=== PATIENT | female | born 1985 | race Hispanic/Latino ===

== ENCOUNTER 2024-05-22 20:38 | Emergency (ER) | payer BC, SELFPAY ==
[2024-05-22 20:40] VITALS: BP 167/103
[2024-05-22 21:02] LABS: % Eosinophils 1.9 % (0-6); % Lymphocytes 34.8 % (20.5-51.1); % Neutrophils 52.3 % (42.2-75.2); Absolute Basophils 0.1 10^3/uL (0-0.2); Absolute Eosinophils 0.1 10^3/uL (0-0.7); Absolute Immature Granulocytes 0.1 10^3/uL (0-0.05); Absolute Lymphocytes 2.5 10^3/uL (1.2-3.4); Absolute Monocytes 0.7 10^3/uL (0.1-0.6); Absolute Neutrophils 3.8 10^3/uL (1.4-6.5); Hematocrit 36.2 % (37.0-47.0); Hemoglobin 12.2 g/dL (12.0-16.0); Mean Corp Hgb Conc. 33.7 g/dL (33.0-37.0); Mean Corpuscular Hgb 27.4 pg (27.0-31.0); Mean Corpuscular Volume 81.3 fL (81.0-99.0); Mean Platelet Volume 10.3 fL (7.4-10.4); Nucleated Red Blood Cells % 0 %; Platelet Count 353 10^3/uL (130-400); Red Blood Cell Count 4.45 10^6/uL (4.20-5.40); Red Cell Dist. Width 15.9 % (11.5-14.5); White Blood Cell Count 7.2 10^3/uL (4.8-10.8)
[2024-05-22 21:12] LABS: Urine Albumin Negative (Neg - Trace); Urine Bilirubin Negative (Negative); Urine Character Clear (Clear); Urine Color Yellow; Urine Glucose 3+ (Negative); Urine Ketone 3+ (Negative); Urine Leukocyte Negative (Negative); Urine Nitrite Negative (Negative); Urine Occult Blood Negative (Negative); Urine Specific Gravity 1.015 (<1.030); Urine Urobilinogen Negative (Neg - 1+)
[2024-05-22 21:14] LABS: ALT (SGPT) 14 U/L (0-35); AST (SGOT) 17 U/L (14-36); Albumin 4.6 g/dl (3.5-5.0); Alkaline Phosphatase 59 U/L (38-126); Blood Urea Nitrogen 13 mg/dl (7-17); Calcium 9.5 mg/dl (8.4-10.2); Carbon Dioxide 19 mmol/L (22-30); Chloride 103 mmol/L (98-107); Glucose 258 mg/dl (70-99); Potassium 4.4 mmol/L (3.5-5.1); Sodium 138 mmol/L (135-145); Total Bilirubin 0.4 mg/dl (0.2-1.3); Total Protein 7.6 g/dl (6.3-8.2); eGFR > 60.00
--- NOTE | 2024-05-22 23:08 | ED.GENMED ---
History of Present Illness
<ALMA Basilio - Last Filed: 05/22/24 23:09>
General
Chief Complaint: Female Nightman/Gu symptoms
Time Seen by Provider: 05/22/24 23:40
<Esdras Brennan DO - Last Filed: 05/23/24 03:01>
General
Source: patient, spouse and family
Exam Limitations: none
Nursing documentation reviewed up to this point in time: agreed with
History of Present Illness
History of Present Illness:
38-year-old female presents emergency department due to burning in her vagina. She had a UTI and was placed on Keflex, then was diagnosed with a yeast infection and placed on boric acid, then diagnosed with BV and placed on Flagyl. Today she has
increased pain and swelling. She watched a [employer] video several days ago and afterwards began having concerns about having flesh eating bacteria from [employer]. She feels like she was more concerned about after watching a [employer] video.
Past History
<ALMA Basilio - Last Filed: 05/22/24 23:09>
Past History
ED Past Medical History: IDDM
ED Past Surgical History: None
Social History
Tobacco: Non-smoker
Alcohol: None
Drug: None
<Esdras Brennan DO - Last Filed: 05/23/24 03:01>
Past History
ED Past Medical History: Hypothyroidism
ED Past Surgical History: Other (Lasik)
Review of Systems
<DO Griselda Swanson Last Filed: 05/23/24 03:01>
Review of Systems
Allergies reviewed?: Yes
All Other Systems: Not applicable
Constitutional: Reports no symptoms
EENT: Reports no symptoms
Respiratory: Reports no symptoms
Cardiac: Reports no symptoms
ABD/GI: Reports no symptoms
: Reports dysuria and other (Pelvic pain)
Musculoskeletal: Reports no symptoms
Skin: Reports no symptoms
Neurological: Reports no symptoms
Endocrine: Reports no symptoms
Hematologic/Lymphatic: Reports no symptoms
Psychiatric: Reports no symptoms
Phy Exam
<Esdras Brennan DO - Last Filed: 05/23/24 03:01>
Physical Exam
Physical Exam:
Physical Exam
General: no apparent distress, not acutely ill
Neck: supple. no meningeal signs. normal posterior pharynx
HEENT: Pupils equal round reactive to light, EOMI
Lungs: no acute respiratory distress.
Abdomen: normal bowel sounds. not tender. no CVAT
Neuro: alert and oriented. no focal neurological deficits
Skin: no rash
Psychiatric: well kept. interactive and cooperative
Extremities: no edema. good distal pulses
Genitourinary Exam Female
Exam Female: no adnexal tenderness, no bleeding, no CMT, no lesions, no mass and vaginal discharge (whitish)
Vaginal Exam: normal
Course
<ST ChetnaPA - Last Filed: 05/22/24 23:09>
Orders/Labs/Results
Orders:
Orders
05/22/24 20:55
Complete Blood Count/With Diff Urgent
Comprehensive Metabolic Panel Urgent
05/22/24 21:05
HCG, Urine Qualitative Screen Urgent
Date Specimen was Collected: 05/22/24
Time Specimen was Collected: 20:48
Comment: ADD ON
Urinalysis Reflex To Culture Urgent
Date Specimen was Collected: 05/22/24
Time Specimen was Collected: 20:48
05/23/24 00:03
US Pelvis Only (non-obstetric) Urgent
Reason For Exam: pelvic pain 3 weeks
05/23/24 02:11
CT Abd/pelvis W Iv Cont Urgent
Comment:
Reason For Exam: periumbilical pain
05/23/24 02:19
Add On- LAB Urgent
Tests Added?: urine hcg
Abnormal Lab Results
05/22/24 05/22/24
20:55 21:05
Hct 36.2 L %
(37.0-47.0)
RDW 15.9 H %
(11.5-14.5)
Abs Immat Gran (auto) 0.1 H 10^3/uL
(0-0.05)
Absolute Monos (auto) 0.7 H 10^3/uL
(0.1-0.6)
Immature Gran % 1.0 H %
(0-0.5)
Carbon Dioxide 19 L mmol/L
(22-30)
Creatinine 0.5 L mg/dL
(0.6-1.0)
Glucose 258 H mg/dl
(70-99)
Urine Ketones 3+ A
(Negative)
Urine Glucose 3+ A
(Negative)
05/22/24 20:55
05/22/24 20:55
Vital Signs
Initial and Last Documented VS:
Initial Vital Signs
Temp Pulse Resp BP Pulse Ox
98.1 F 118 16 167/103 100
05/22/24 20:40 05/22/24 20:40 05/22/24 20:40 05/22/24 20:40 05/22/24 20:40
Last Documented Vital Signs
Temp Pulse Resp BP Pulse Ox
98.2 F 93 15 128/88 97
05/22/24 23:50 05/23/24 03:00 05/23/24 03:00 05/23/24 03:00 05/23/24 03:00
<Esdras Brennan, DO - Last Filed: 05/23/24 03:01>
Orders/Labs/Results
Orders:
Orders
05/22/24 20:55
Complete Blood Count/With Diff Urgent
Comprehensive Metabolic Panel Urgent
05/22/24 21:05
HCG, Urine Qualitative Screen Urgent
Date Specimen was Collected: 05/22/24
Time Specimen was Collected: 20:48
Comment: ADD ON
Urinalysis Reflex To Culture Urgent
Date Specimen was Collected: 05/22/24
Time Specimen was Collected: 20:48
05/23/24 00:03
US Pelvis Only (non-obstetric) Urgent
Reason For Exam: pelvic pain 3 weeks
05/23/24 02:11
CT Abd/pelvis W Iv Cont Urgent
Comment:
Reason For Exam: periumbilical pain
05/23/24 02:19
Add On- LAB Urgent
Tests Added?: urine hcg
Abnormal Lab Results
05/22/24 05/22/24
20:55 21:05
Hct 36.2 L %
(37.0-47.0)
RDW 15.9 H %
(11.5-14.5)
Abs Immat Gran (auto) 0.1 H 10^3/uL
(0-0.05)
Absolute Monos (auto) 0.7 H 10^3/uL
(0.1-0.6)
Immature Gran % 1.0 H %
(0-0.5)
Carbon Dioxide 19 L mmol/L
(22-30)
Creatinine 0.5 L mg/dL
(0.6-1.0)
Glucose 258 H mg/dl
(70-99)
Urine Ketones 3+ A
(Negative)
Urine Glucose 3+ A
(Negative)
05/22/24 20:55
05/22/24 20:55
Vital Signs
Initial and Last Documented VS:
Initial Vital Signs
Temp Pulse Resp BP Pulse Ox
98.1 F 118 16 167/103 100
05/22/24 20:40 05/22/24 20:40 05/22/24 20:40 05/22/24 20:40 05/22/24 20:40
Last Documented Vital Signs
Temp Pulse Resp BP Pulse Ox
98.2 F 93 15 128/88 97
05/22/24 23:50 05/23/24 03:00 05/23/24 03:00 05/23/24 03:00 05/23/24 03:00
<Krunal Davis, DO - Last Filed: 05/23/24 03:14>
Orders/Labs/Results
Orders:
Orders
05/22/24 20:55
Complete Blood Count/With Diff Urgent
Comprehensive Metabolic Panel Urgent
05/22/24 21:05
HCG, Urine Qualitative Screen Urgent
Date Specimen was Collected: 05/22/24
Time Specimen was Collected: 20:48
Comment: ADD ON
Urinalysis Reflex To Culture Urgent
Date Specimen was Collected: 05/22/24
Time Specimen was Collected: 20:48
05/23/24 00:03
US Pelvis Only (non-obstetric) Urgent
Reason For Exam: pelvic pain 3 weeks
05/23/24 02:11
CT Abd/pelvis W Iv Cont Urgent
Comment:
Reason For Exam: periumbilical pain
05/23/24 02:19
Add On- LAB Urgent
Tests Added?: urine hcg
Abnormal Lab Results
05/22/24 05/22/24
20:55 21:05
Hct 36.2 L %
(37.0-47.0)
RDW 15.9 H %
(11.5-14.5)
Abs Immat Gran (auto) 0.1 H 10^3/uL
(0-0.05)
Absolute Monos (auto) 0.7 H 10^3/uL
(0.1-0.6)
Immature Gran % 1.0 H %
(0-0.5)
Carbon Dioxide 19 L mmol/L
(22-30)
Creatinine 0.5 L mg/dL
(0.6-1.0)
Glucose 258 H mg/dl
(70-99)
Urine Ketones 3+ A
(Negative)
Urine Glucose 3+ A
(Negative)
05/22/24 20:55
05/22/24 20:55
Vital Signs
Initial and Last Documented VS:
Initial Vital Signs
Temp Pulse Resp BP Pulse Ox
98.1 F 118 16 167/103 100
05/22/24 20:40 05/22/24 20:40 05/22/24 20:40 05/22/24 20:40 05/22/24 20:40
Last Documented Vital Signs
Temp Pulse Resp BP Pulse Ox
98.2 F 93 15 128/88 97
05/22/24 23:50 05/23/24 03:00 05/23/24 03:00 05/23/24 03:00 05/23/24 03:00
<Esdras Brennan, DO - Last Filed: 05/23/24 03:01>
MDM/Problems Addressed
Differential Diagnosis Includes:
vaginal candidiasis, diverticulitis
MDM/Problems Addressed:
38 yo female with periumbilical pain, vaginal candidiasis. She was using boric acid, but states it portillo. Will treat with clotrimazole troches and follow up with clinical quality assurance associate. CT a/p pending to evaluate periumbilical pain.
Chronic conditions affecting care: HTN
Acute Exacerbation and/or Progression of Chronic Illness: HTN
<Esdras Brennan, - Last Filed: 05/23/24 03:01>
*Pulse Oximetry
Patient hypoxic: no
*EKG
Interpreted by ED Provider?: NA
*Digital Media Strategist Interpretation
Rate: Digital Media Strategist- N/A
*Critical Care Note
Total Time (30-74mins, 75-104mins- exclusive of procedures): Not Applicable
<Krunal Davis DO - Last Filed: 05/23/24 03:14>
Update Note
Update Note:
ULTRASOUND PELVIS
COMPARISON: None
IMPRESSION:
Transvaginal exam not performed.
1.8 cm fibroid posterior uterus, likely intramural. 3.3 cm likely calcified fibroid posterior uterus, possibly subserosal. Endometrial thickness is 8 mm.
Right ovary is normal. Normal Doppler flow.
Left ovary is normal. Normal Doppler flow.
No free fluid in the pelvis.
ED Attending Note
<ALMA Basilio - Last Filed: 05/22/24 23:09>
-
Portions of this chart may have been created with voice recognition software.� Occasional wrong word or��sound alike� substitutions may have occurred due to the inherent limitations of voice recognition software.
Discharge Plan
Departure
Patient with high blood pressure during this ER visit?: Yes
Condition: Good
Discharge Problem:
Candidiasis of vagina, Abdominal pain
Instructions: Yeast Infection (DC), Abdominal Pain
Prescriptions:
New
clotrimazole [Gyne-Lotrimin 7] 1 % cream
1 appful vaginal HS 7 Days Qty: 45 0RF
Referrals:
Carmen Dean DO [Family Provider] -
Interventions
Interventions:
*General Assessment Last Done: 05/22/24 20:40
*Neglect/Abuse Screening Last Done: 05/22/24 23:50
ED-Female Genitourinary Assessment Last Done: 05/22/24 23:50
Discharge Date and Time
Print Language: TURKISH
[2024-05-22 23:50] VITALS: BP 138/91
[2024-05-23 02:52] LABS: HCG, Urine Qualitative Screen Negative
[2024-05-23 03:00] VITALS: BP 128/88
[2024-05-23] MEDS: TORADOL 15 MG IV (03:37)
[2024-05-23 04:40] VITALS: BP 113/79
[2024-05-23] MEDS: DIFLUCAN 150 MG PO (04:58)
== END 2024-05-23 04:40 | disposition home or self-care (01) ==
LOC: EMR 20:38
PROVIDERS: EMERGENCY PHYSICIAN Emergency Medicine; FAMILY PHYSICIAN Family Medicine
DX: B37.31 Acute candidiasis of vulva and vagina (principal); R10.33 Periumbilical pain; R10.2 Pelvic and perineal pain; R30.0 Dysuria; D25.2 Subserosal leiomyoma of uterus; I10 Essential (primary) hypertension; E11.9 Type 2 diabetes mellitus without complications; E78.5 Hyperlipidemia, unspecified; E03.9 Hypothyroidism, unspecified; Z79.4 Long term (current) use of insulin; Z88.8 Allergy status to other drugs, medicaments and biological substances
CPT/HCPCS: 99285; 96374; 74177; 76856; 80053; 81003; 81025; 85025; Q9967